=== PATIENT | female | born 1965 | race Caucasian/White ===

== ENCOUNTER 2022-03-04 08:08 | Outpatient (CLI) | payer OTHER, SELFPAY ==
--- NOTE | 2022-03-04 11:00 | NEURO_ITS ---
Impression: # History of pain in all 4 extremities. # Early changes suggestive of evolving left Carpal Tunnel Syndrome. # Normal lower extremity Nerve Conduction Study. # Normal needle/EMG exam. # Clinical correlation recommended. Motor Nerve Conduction Upper Extremities Median Nerve Conduction Velocity (m/sec) Terminal Latency (msec) Response Voltage(mV) Elbow-Wrist Wrist Elbow Wrist Right 54 3.4 6 6 Left 55 3.4 7 8 Ulnar Nerve Conduction Velocity (m/sec) Terminal Latency (msec) Response Voltage(mV) Above Elbow Below Elbow Wrist Above Elbow Below Elbow Wrist Right 54 59 2.5 6 7 7 Left 55 59 2.4 4 4 5 F-Wave Latency Median (ms) Ulnar (ms) Right 26.7 27.8 Left 27.2 27.7 Sensory Nerve Conduction Upper Extremities Median Nerve Stimulation Terminal Latency (msec) Wrist/Digit Response Voltage (uV) Wrist Right 3.5/3.6 32/38 Left 3.9/3.8 42/43 Ulnar Nerve Stimulation Terminal Latency (msec) Wrist/Digit Response Voltage (uV) Wrist Right 2.8 28 Left 2.8 40 Radial Nerve Terminal Latency (msec) Response Voltage(mV) Right 2.2 30 Left 2.3 22 Left Right Muscles Examined Fibrillation Fasciculation Scarcity Voltage Duration Left Right Left Right Left Right Left Right Left Right Deltoid Biceps X X Brachioradialis Triceps X X Pronator Teres X X Ext Indicis X X Ext Digitorum X X Abd Poll Brev X X 1st Dorsal Interosseus Paraspinals Motor Nerve Conduction Lower Extremities Peroneal Nerve Conduction Velocity (m/sec) Terminal Latency (msec) Response Voltage(mV) Popliteal space-Ankle Ankle Extensor Dig Brevis Popliteal space Ankle Right 49-51 4.0 6-6 7 Left 52-50 4.0 5-6 6 Tibial Nerve Conduction Velocity (m/sec) Terminal Latency (msec) Response Voltage(mV) Popliteal space-Ankle Ankle-Extensor Dig Brevis Popliteal space Ankle Right 51 3.7 4 6 Left 48 3.8 5 7 F-waves Peroneal Nerve (ms) Tibial Nerve (ms) Right 49.8 51.6 Left 49.9 49.9 Sensory Nerve Conduction Lower Extremities Sural Nerve Stimulation Terminal Latency (msec) Ankle Response Voltage (uV) Ankle Response Velocity (m/sec) Right 3.7 12 43 Left 4.0 10 40 Superficial Peroneal Nerve Stimulation Terminal Latency (msec) Ankle Response Voltage (uV) Ankle Response Velocity (m/sec) Right 3.7 13 43 Left 3.8 10 42 Left Right Muscles Examined Fibrillation Fasciculation Scarcity Voltage Duration Left Right Left Right Left Right Left Right Left Right X X Ant Tibialis X X Gastroc X X Fibularis Long X X Flex Dig Long X X Ext Dig Brev Abd Hallucis Quadriceps Paraspinals MTDD
== END 2022-03-04 08:09 | disposition home or self-care (01) ==
LOC: ANHNEURO 08:11
PROVIDERS: Visit Provider Neurological Surgery
DX: M54.2 Cervicalgia (principal); M79.604 Pain in right leg; M79.605 Pain in left leg
CPT/HCPCS: 95886; 95913